=== PATIENT | male | born 1955 | race African-American/Black ===

== ENCOUNTER 2022-10-03 23:40 | Emergency (ER) | payer BC, MEDICAID ==
[~2022-10-03] VITALS: Ht 182.9 cm; Wt 77.0 kg
[2022-10-04 00:01] VITALS: O2SAT 95
[2022-10-04 01:09] LABS: BASOPHILS % 0.1 % (0.0-2.0); EOSINOPHILS % 0.6 % (0.0-5.0); HEMATOCRIT. 51.2 % (42.0-52.0); LYMPHOCYTES % 21.4 % (20.0-50.0); MEAN CORPUSCULAR HEMOGLOBIN 30.2 pg (28.0-32.0); MEAN CORPUSCULAR HGB CONC 33.2 g/dL (31.0-37.0); MEAN CORPUSCULAR VOLUME 91.1 fL (80.0-94.0); MEAN PLATELET VOLUME 9.6 fl (7.4-10.4); MONOCYTES % 7.3 % (2.0-8.0); NEUTROPHILS % 70.6 % (40.0-76.0); PLATELET 146 x1000/uL (130-400); RED BLOOD CELL COUNT 5.62 mill/uL (4.7-6.1); RED CELL DISTRIBUTION WIDTH 13.4 % (11.6-14.6); WHITE BLOOD COUNT 7.3 x1000/uL (4.5-11.0)
[2022-10-04 01:14] LABS: CHLORIDE 110 mEq/L (98-107); INDEX HEMOLYSI 2 (1-3); INDEX ICTERIC 1 (1-4); INDEX LIPEMIC 1 (1-3); POTASSIUM 4.6 mEq/L (3.5-5.1); SODIUM 139 mEq/L (136-145)
[2022-10-04 01:25] LABS: ALANINE AMINOTRANSFERASE 75 IU/L (13-61); ALBUMIN 3.7 g/dL (3.4-5.0); ASPARTATE AMINOTRANSFERASE 52 IU/L (15-37); BILIRUBIN TOTAL 0.5 mg/dL (0.1-1.0); CALCIUM 9.3 mg/dL (8.5-10.1); CARBON DIOXIDE 23 mEq/L (21-32); CREATININE 1.2 mg/dL (0.6-1.3); GLUCOSE 124 mg/dL (70-105); NT PRO B-TYPE NATRIURETIC PEP 143 pg/mL (5-125); PROTEIN TOTAL 7.9 g/dL (6.0-8.3); UREA NITROGEN BLOOD 17 mg/dL (7-21)
[2022-10-04 01:32] LABS: TROPONIN I HIGH SENSITIVITY < 4 ng/L (<78)
[2022-10-04 02:09] LABS: INR 1.1; PROTHROMBIN TIME 11.6 sec (9.6-11.0)
[2022-10-04 02:55] LABS: TROPONIN I HIGH SENSITIVITY < 4 ng/L (<78)
[2022-10-04] MEDS ORDERED: HYDRALAZINE 20MG/ML VIAL IV ONE (06:00)
[2022-10-04] MEDS ORDERED: ACETAMINOPHEN 325MG TABLET PO ONE (06:00)
[2022-10-04] MEDS ORDERED: ONDANSETRON HCL 4MG/2ML INJ IV ONE (06:30)
[2022-10-04 06:41] VITALS: BP 142/52; PULSE 72; RESP 18; TEMP 98.9
== END 2022-10-04 06:50 | disposition short-term general hospital (02) ==
LOC: ER 23:40 → CANBEDREQ 10-05 00:32
DX: R55 Syncope and collapse (principal); I10 Essential (primary) hypertension
CPT/HCPCS: 99285; 96374; 71045; 96375; 80053; 83880; 85025; 85610; 86850; 86900; 86901; 84484; 36415; 93005; J0360; J2405

== ENCOUNTER 2023-07-28 17:33 | Inpatient (IN) | payer MEDICAID, MEDICARE ==
[~2023-07-28] VITALS: Ht 170.2 cm; Wt 67.1 kg
[2023-07-28] MEDS ORDERED: CLONIDINE 0.2MG TABLET PO ONE (21:45)
[2023-07-28] MEDS: CLONIDINE 0.1MG TABLET PO NR (22:45)
[2023-07-28 22:58] LABS: BASOPHILS % 0.3 % (0.0-2.0); EOSINOPHILS % 3.1 % (0.0-5.0); HEMATOCRIT. 48.8 % (42.0-52.0); HEMOGLOBIN. 16.1 g/dL (14.0-18.0); LYMPHOCYTES % 32.2 % (20.0-50.0); MEAN CORPUSCULAR HGB CONC 33.1 g/dL (31.0-37.0); MEAN CORPUSCULAR VOLUME 93.7 fL (80.0-94.0); MEAN PLATELET VOLUME 9.6 fl (7.4-10.4); MONOCYTES % 11.6 % (2.0-8.0); NEUTROPHILS % 52.8 % (40.0-76.0); PLATELET 152 x1000/uL (130-400); RED BLOOD CELL COUNT 5.21 mill/uL (4.7-6.1); RED CELL DISTRIBUTION WIDTH 14.2 % (11.6-14.6); WHITE BLOOD COUNT 10.1 x1000/uL (4.5-11.0)
[2023-07-28 23:08] LABS: CHLORIDE 103 mEq/L (98-107); POTASSIUM 4.4 mEq/L (3.5-5.1); SODIUM 136 mEq/L (136-145)
[2023-07-28 23:09] LABS: CARBON DIOXIDE 25 mEq/L (21-32)
[2023-07-28 23:10] LABS: CALCIUM 9.9 mg/dL (8.7-10.4); INR 1.1; PARTIAL THROMBOPLASTIN TIME 29.2 sec (23.4-31.0); PROTHROMBIN TIME 11.8 sec (9.6-11.0)
[2023-07-28 23:14] LABS: CREATININE 1.5 mg/dL (0.6-1.3); GLUCOSE 97 mg/dL (70-105); UREA NITROGEN BLOOD 13 mg/dL (9-23)
[2023-07-28 23:15] LABS: TROPONIN I HIGH SENSITIVITY < 4 ng/L (3.0-53)
[2023-07-28] MEDS: ASPIRIN 325MG EC TABLET PO ONE (23:52)
[2023-07-29 06:38] VITALS: BP 129/51; PULSE 59; RESP 18; TEMP 97.7
[2023-07-29 07:43] VITALS: BP 129/51; PULSE 59; RESP 18; TEMP 97.7
[2023-07-29 08:00] VITALS: BP 133/70; PULSE 58; RESP 18; TEMP 98
[2023-07-29] MEDS ORDERED: ACETAMINOPHEN 325MG TABLET PO PRN (09:00)
[2023-07-29] MEDS ORDERED: ONDANSETRON HCL 4MG/2ML INJ IV PRN (09:00)
[2023-07-29] MEDS: ENOXAPARIN 30MG/0.3ML SYR SUBCUT SCH (09:50)
[2023-07-29] MEDS: ASPIRIN 81MG TABLET PO SCH (09:51)
[2023-07-29 12:00] VITALS: BP 141/75; PULSE 55; RESP 18; TEMP 99
[2023-07-29 16:00] VITALS: BP 115/50; PULSE 66; RESP 20; TEMP 98
[2023-07-29 20:00] VITALS: BP 122/53; PULSE 63; RESP 18; TEMP 97.3
[2023-07-29] MEDS: ATORVASTATIN CALCIUM 40MG TABLET PO SCH (20:24)
[2023-07-30] VITALS: BP 141/59; PULSE 57; RESP 16; TEMP 97.2
[2023-07-30 04:00] VITALS: BP 144/66; PULSE 63; RESP 18; TEMP 97.2
[2023-07-30 08:00] VITALS: BP 122/70; PULSE 67; RESP 18; TEMP 97.9
[2023-07-30] MEDS: CLOPIDOGREL 75MG TABLET PO SCH (08:32)
[2023-07-30 12:00] VITALS: BP 127/56; PULSE 59; RESP 18; TEMP 97
[2023-07-30 16:00] VITALS: BP 127/58; PULSE 65; RESP 18; TEMP 97
[2023-07-30 20:00] VITALS: BP 142/69; PULSE 62; RESP 18; TEMP 97.5
[2023-07-31] VITALS: BP 144/72; PULSE 60; RESP 20; TEMP 97.3
[2023-07-31 04:00] VITALS: BP 147/54; PULSE 59; RESP 20; TEMP 97.2
[2023-07-31 08:00] VITALS: BP 145/70; PULSE 58; RESP 18; TEMP 97.5
[2023-07-31 12:00] VITALS: BP 129/62; PULSE 59; RESP 18; TEMP 97.7
[2023-07-31] MEDS ORDERED: LIP40 PO (14:30)
[2023-07-31] MEDS ORDERED: ASPI-1160 PO (14:30)
[2023-07-31] MEDS ORDERED: CLOP-31 PO (14:30)
[2023-07-31 15:41] VITALS: BP 132/62; PULSE 66; TEMP 97.6; O2SAT 97
[2023-07-31 16:00] VITALS: BP 127/54; PULSE 65; RESP 18; TEMP 97.5
== END 2023-07-31 19:00 | disposition home or self-care (01) | DRG 64 ==
LOC: ER 17:33 → 5WST 07-29 03:30 → 8WST 07-29 09:26
PROVIDERS: ADMIT Internal Medicine Pulmonary Disease; ATTEND Internal Medicine Pulmonary Disease
DX: I63.511 Cerebral infarction due to unspecified occlusion or stenosis of right middle cerebral artery (principal); N17.0 Acute kidney failure with tubular necrosis; R27.0 Ataxia, unspecified; F17.210 Nicotine dependence, cigarettes, uncomplicated; F32.A Depression, unspecified
CPT/HCPCS: 36415; 70551; 71045; 80048; 80061; 82962; 84484; 85025; 93005; 93306; 93880; 95816; 97116; 97162; 97166; 99285; J1650

== ENCOUNTER 2023-08-12 22:52 | Inpatient (IN) | payer MEDICAID ==
[~2023-08-12] VITALS: Ht 175.3 cm; Wt 67.6 kg
[~2023-08-12 22:52] MED LIST: ASPI-1160 PO; CLOP-31 PO; LIP40 PO
[2023-08-12 22:55] VITALS: O2SAT 97
[2023-08-12 23:23] LABS: BASOPHILS % 0.4 % (0.0-2.0); EOSINOPHILS % 5.8 % (0.0-5.0); HEMATOCRIT. 37.9 % (42.0-52.0); HEMOGLOBIN. 12.9 g/dL (14.0-18.0); LYMPHOCYTES % 31.1 % (20.0-50.0); MEAN CORPUSCULAR HEMOGLOBIN 31.2 pg (28.0-32.0); MEAN CORPUSCULAR VOLUME 91.6 fL (80.0-94.0); MEAN PLATELET VOLUME 9.8 fl (7.4-10.4); MONOCYTES % 8.2 % (2.0-8.0); NEUTROPHILS % 54.5 % (40.0-76.0); PLATELET 179 x1000/uL (130-400); RED BLOOD CELL COUNT 4.14 mill/uL (4.7-6.1); WHITE BLOOD COUNT 9.5 x1000/uL (4.5-11.0)
[2023-08-12 23:30] LABS: BG BASE EXCESS -1.1 mmol/L (-2.0-2.0); BG CARBOXYHEMOGLOBIN 0.3 % (0.5-1.5); BG DEOXYHEMOGLOBIN 2.5 % (0.0-5.0); BG FRACTION INSPIRED OXYGEN 21; BG HCO3 ACT 23.4 mmol/L (22.0-26.0); BG METHEMOGLOBIN 0.2 % (0.0-1.5); BG OXYGEN SATURATION 97.5 % (92.0-98.5); BG PCO2 38.5 mmHg (35.0-45.0); BG PH 7.402 (7.350-7.450); BG PO2 107.6 mmHg (75.0-100.0); BG SAMPLE SITE RIGHT RADIAL; BG VENT MODE ROOM AIR
[2023-08-12 23:35] LABS: CHLORIDE 108 mEq/L (98-107); POTASSIUM 3.4 mEq/L (3.5-5.1); SODIUM 143 mEq/L (136-145)
[2023-08-12 23:36] LABS: CALCIUM 9.4 mg/dL (8.7-10.4); CARBON DIOXIDE 26 mEq/L (21-32)
[2023-08-12 23:37] LABS: LACTIC ACID 2.1 mmol/L (0.4-2.0)
[2023-08-12 23:40] LABS: AMMONIA 49 uMol/L (<32)
[2023-08-12 23:41] LABS: CREATININE 1.7 mg/dL (0.6-1.3); GLUCOSE 177 mg/dL (70-105); UREA NITROGEN BLOOD 25 mg/dL (9-23)
[2023-08-12 23:43] LABS: ACETAMINOPHEN 8 ug/mL (10-30); ALANINE AMINOTRANSFERASE 78 IU/L (10-49); ASPARTATE AMINOTRANSFERASE 72 IU/L (<34); BILIRUBIN DIRECT 0.2 mg/dL (<=3.0); BILIRUBIN TOTAL 0.3 mg/dL (0.1-1.0); CREATINE KINASE 92 IU/L (46-171); ETHANOL BLOOD < 10 mg/dL (<10); PROTEIN TOTAL 6.6 g/dL (6.0-8.3); TROPONIN I HIGH SENSITIVITY < 4 ng/L (3.0-53)
[2023-08-12] MEDS: SODIUM CHLORIDE 0.9% 500 ML IV ONE (23:45)
[2023-08-13] VITALS (60 sets, daily range): BP systolic 83–121; BP diastolic 31–95; PULSE 58–94; RESP 12–24; TEMP 94–98
[2023-08-13] MEDS: SODIUM CHLORIDE 0.9% 1,000 ML IV ONE (01:04)
[2023-08-13] MEDS: POTASSIUM CHLORIDE 20MEQ/PACKET PO NR (02:55)
[2023-08-13] MEDS: MIDODRINE HCL 5MG TABLET PO ONE (03:45)
[2023-08-13] MEDS ORDERED: NOREPINEPHRINE 8MG/250ML PMX 250 ML IV PRN (07:45)
[2023-08-13] MEDS ORDERED: NOREPINEPHRINE 8MG/250ML PMX 250 ML IV ONE (08:00)
[2023-08-13] MEDS: NOREPINEPHRINE 8MG/250ML PMX 250 ML IV PRN (08:15)
[2023-08-13] MEDS: SODIUM CHLORIDE 0.45% 1,000 ML IV STA (08:47)
[2023-08-13] MEDS ORDERED: CLONIDINE 0.1MG TABLET PO PRN (09:00)
[2023-08-13] MEDS ORDERED: IPRATROPIUM/ALBUTEROL 0.5-3(2.5)MG/3ML NEB HHN PRN (09:00)
[2023-08-13] MEDS ORDERED: DOCUSATE SODIUM 100MG CAPSULE PO PRN (09:00)
[2023-08-13] MEDS ORDERED: ACETAMINOPHEN 325MG TABLET PO PRN ×2 (09:00)
[2023-08-13] MEDS ORDERED: NA PHOS,M-B/NA PHOS,DI-BA ENEMA 118ML PR PRN (09:00)
[2023-08-13] MEDS ORDERED: MAGNESIUM/ALUMINUM HYDROXIDE/SIMETHICONE 30ML UDC PO PRN (09:00)
[2023-08-13] MEDS ORDERED: GUAIFENESIN 200MG/10ML SUGAR FREE UDC PO PRN (09:00)
[2023-08-13] MEDS: DOPAMINE 400MG/250ML PREMIX 250 ML IV SCH (09:54)
[2023-08-13] MEDS: SODIUM CHLORIDE 0.45% 1,000 ML IV SCH (09:54)
[2023-08-13 09:59] LABS: BASOPHILS % 0.4 % (0.0-2.0); EOSINOPHILS % 0.5 % (0.0-5.0); HEMATOCRIT. 38.2 % (42.0-52.0); HEMOGLOBIN. 12.7 g/dL (14.0-18.0); LYMPHOCYTES % 12.4 % (20.0-50.0); MEAN CORPUSCULAR HEMOGLOBIN 30.4 pg (28.0-32.0); MEAN CORPUSCULAR HGB CONC 33.3 g/dL (31.0-37.0); MEAN CORPUSCULAR VOLUME 91.4 fL (80.0-94.0); NEUTROPHILS % 79.7 % (40.0-76.0); PLATELET 196 x1000/uL (130-400); RED BLOOD CELL COUNT 4.17 mill/uL (4.7-6.1); WHITE BLOOD COUNT 15.3 x1000/uL (4.5-11.0)
[2023-08-13 10:15] LABS: CHLORIDE 108 mEq/L (98-107); POTASSIUM 3.9 mEq/L (3.5-5.1); SODIUM 140 mEq/L (136-145)
[2023-08-13 10:16] LABS: CARBON DIOXIDE 22 mEq/L (21-32)
[2023-08-13 10:17] LABS: CALCIUM 9.2 mg/dL (8.7-10.4)
[2023-08-13 10:21] LABS: CREATININE 2.2 mg/dL (0.6-1.3); GLUCOSE 186 mg/dL (70-105)
[2023-08-13 10:22] LABS: UREA NITROGEN BLOOD 26 mg/dL (9-23)
[2023-08-13 10:26] LABS: T4 FREE 1.01 ng/dL (0.89-1.76); THYROID STIMULATING HORMONE 0.73 uIU/mL (0.55-4.78)
[2023-08-13] MEDS: ONDANSETRON HCL 4MG/2ML INJ IV PRN (11:12)
[2023-08-13] MEDS: THIAMINE HCL 100MG TABLET PO SCH (12:18)
[2023-08-13] MEDS ORDERED: DOPAMINE 400MG/250ML PREMIX 250 ML IV PRN (12:45)
[2023-08-13] MEDS: LIDOCAINE HCL 1% 10 MG/ML 10ML VIAL ONE (13:11)
[2023-08-13] MEDS: MAGNESIUM OXIDE 400MG TABLET PO SCH (14:22)
[2023-08-13] MEDS: ASPIRIN 81MG EC TABLET PO SCH (14:22)
[2023-08-13] MEDS: CLOPIDOGREL 75MG TABLET PO SCH (14:22)
[2023-08-13] MEDS: NOREPINEPHRINE 32 MG in DEXT 5% WATER 218 ML IV PRN (14:23)
[2023-08-13] MEDS: SODIUM CHLORIDE 0.9% 1,000 ML IV STA (14:31)
[2023-08-13 17:50] LABS: CREATINE KINASE 83 IU/L (46-171)
[2023-08-13 18:04] LABS: TROPONIN I HIGH SENSITIVITY < 4 ng/L (3.0-53)
[2023-08-13] MEDS: ATORVASTATIN CALCIUM 40MG TABLET PO SCH (20:44)
[2023-08-13] MEDS ORDERED: DEXTROSE 50% WATER 50ML SYRINGE IV PRN (21:00)
[2023-08-13] MEDS: BLOOD SUGAR DIAGNOSTIC STRIP TEST SCH (21:00)
[2023-08-13] MEDS: DEXT 5%/0.45% NACL 1000ML 1,000 ML IV SCH (22:17)
[2023-08-13] MEDS: INSULIN LISPRO 100 UNITS/ML SUBCUT SCH (22:28)
[2023-08-13 23:01] LABS: TROPONIN I HIGH SENSITIVITY < 4 ng/L (3.0-53)
[2023-08-13 23:02] LABS: CREATINE KINASE 82 IU/L (46-171)
[2023-08-14] VITALS (100 sets, daily range): BP systolic 63–136; BP diastolic 32–79; PULSE 70–112; RESP 6–32; TEMP 96.8–98.2
[2023-08-14 04:09] LABS: BASOPHILS % 0.2 % (0.0-2.0); EOSINOPHILS % 0.6 % (0.0-5.0); HEMATOCRIT. 33.5 % (42.0-52.0); HEMOGLOBIN. 11.4 g/dL (14.0-18.0); LYMPHOCYTES % 21.9 % (20.0-50.0); MEAN CORPUSCULAR HEMOGLOBIN 30.6 pg (28.0-32.0); MEAN CORPUSCULAR HGB CONC 34.1 g/dL (31.0-37.0); MEAN CORPUSCULAR VOLUME 89.6 fL (80.0-94.0); MEAN PLATELET VOLUME 9.2 fl (7.4-10.4); MONOCYTES % 11.3 % (2.0-8.0); PLATELET 177 x1000/uL (130-400); RED BLOOD CELL COUNT 3.73 mill/uL (4.7-6.1); RED CELL DISTRIBUTION WIDTH 13.3 % (11.6-14.6); WHITE BLOOD COUNT 12.9 x1000/uL (4.5-11.0)
[2023-08-14 04:56] LABS: CHLORIDE 106 mEq/L (98-107); POTASSIUM 2.9 mEq/L (3.5-5.1); SODIUM 138 mEq/L (136-145)
[2023-08-14 04:57] LABS: CALCIUM 8.3 mg/dL (8.7-10.4); CARBON DIOXIDE 22 mEq/L (21-32)
[2023-08-14 05:02] LABS: CREATININE 2.1 mg/dL (0.6-1.3); GLUCOSE 195 mg/dL (70-105); TRIGLYCERIDE 75 mg/dL (0-150); UREA NITROGEN BLOOD 29 mg/dL (9-23)
[2023-08-14 05:03] LABS: LDL CHOLESTEROL 29 mg/dL (5-100)
[2023-08-14 05:04] LABS: CHOLESTEROL 91 mg/dL (<200); HDL CHOLESTEROL 37 mg/dL (>55); THYROID STIMULATING HORMONE 0.28 uIU/mL (0.55-4.78)
[2023-08-14 05:11] LABS: TROPONIN I HIGH SENSITIVITY < 4 ng/L (3.0-53)
[2023-08-14] MEDS: PANTOPRAZOLE 40MG DR TABLET PO SCH (05:56)
[2023-08-14] MEDS: POTASSIUM CHLORIDE 20MEQ TABLET SR PO NR (08:34)
[2023-08-14] MEDS: KCL 20MEQ/100ML PREMIX 100 ML IV NR (08:34)
[2023-08-14] MEDS: DOPAMINE 400MG/250ML PREMIX 250 ML IV SCH (10:06)
[2023-08-14] MEDS: MIDODRINE HCL 5MG TABLET PO SCH (10:06)
[2023-08-14] MEDS: ALBUMIN HUMAN 25GM/500ML (5%) IV NR (11:16)
[2023-08-14] MEDS: NOREPINEPHRINE 32 MG in DEXT 5% WATER 218 ML IV PRN (13:00)
[2023-08-14] MEDS: SODIUM CHLORIDE 0.9% 1,000 ML IV SCH (22:21)
[2023-08-15] VITALS (86 sets, daily range): BP systolic 88–142; BP diastolic 41–113; PULSE 71–104; RESP 8–36; TEMP 97.3–98.4
[2023-08-15 05:26] LABS: BASOPHILS % 0.4 % (0.0-2.0); EOSINOPHILS % 2.1 % (0.0-5.0); HEMATOCRIT. 33.4 % (42.0-52.0); HEMOGLOBIN. 11.6 g/dL (14.0-18.0); LYMPHOCYTES % 22.3 % (20.0-50.0); MEAN CORPUSCULAR HGB CONC 34.6 g/dL (31.0-37.0); MEAN CORPUSCULAR VOLUME 89.6 fL (80.0-94.0); MEAN PLATELET VOLUME 10.1 fl (7.4-10.4); MONOCYTES % 11.8 % (2.0-8.0); NEUTROPHILS % 63.4 % (40.0-76.0); PLATELET 153 x1000/uL (130-400); RED BLOOD CELL COUNT 3.73 mill/uL (4.7-6.1); RED CELL DISTRIBUTION WIDTH 13.2 % (11.6-14.6); WHITE BLOOD COUNT 10.4 x1000/uL (4.5-11.0)
[2023-08-15 05:28] LABS: CARBON DIOXIDE 21 mEq/L (21-32); CHLORIDE 114 mEq/L (98-107); POTASSIUM 3.6 mEq/L (3.5-5.1); SODIUM 142 mEq/L (136-145)
[2023-08-15 05:29] LABS: CALCIUM 9.2 mg/dL (8.7-10.4)
[2023-08-15 05:34] LABS: GLUCOSE 89 mg/dL (70-105); UREA NITROGEN BLOOD 20 mg/dL (9-23)
[2023-08-15 05:36] LABS: PHOSPHORUS 1.4 mg/dL (2.5-4.9)
[2023-08-15 06:00] LABS: CREATININE 1.4 mg/dL (0.6-1.3)
[2023-08-15] MEDS: IOHEXOL-350 100 ML BOTTLE ONE (06:39)
[2023-08-15] MEDS: POTASSIUM PHOSPHATE 20 MMOL in DEXT 5% WATER 243.3333 ML IV SCH (10:33)
[2023-08-15] MEDS: MAGNESIUM 2 G PREMIX 50 ML IV SCH (10:33)
[2023-08-16] VITALS (54 sets, daily range): BP systolic 99–136; BP diastolic 50–91; PULSE 72–104; RESP 7–31; TEMP 97.5–98.1
[2023-08-16 05:17] LABS: BASOPHILS % 0.5 % (0.0-2.0); EOSINOPHILS % 5.2 % (0.0-5.0); HEMATOCRIT. 33.4 % (42.0-52.0); HEMOGLOBIN. 11.7 g/dL (14.0-18.0); LYMPHOCYTES % 25.7 % (20.0-50.0); MEAN CORPUSCULAR HEMOGLOBIN 31.3 pg (28.0-32.0); MEAN CORPUSCULAR VOLUME 89.6 fL (80.0-94.0); MEAN PLATELET VOLUME 9.8 fl (7.4-10.4); MONOCYTES % 10.9 % (2.0-8.0); NEUTROPHILS % 57.7 % (40.0-76.0); PLATELET 154 x1000/uL (130-400); RED BLOOD CELL COUNT 3.73 mill/uL (4.7-6.1); RED CELL DISTRIBUTION WIDTH 13.1 % (11.6-14.6)
[2023-08-16 05:21] LABS: CHLORIDE 113 mEq/L (98-107); POTASSIUM 3.8 mEq/L (3.5-5.1); SODIUM 142 mEq/L (136-145)
[2023-08-16 05:22] LABS: CALCIUM 8.6 mg/dL (8.7-10.4); CARBON DIOXIDE 22 mEq/L (21-32)
[2023-08-16 05:27] LABS: CREATININE 1.3 mg/dL (0.6-1.3); GLUCOSE 100 mg/dL (70-105); UREA NITROGEN BLOOD 15 mg/dL (9-23)
[2023-08-16 05:29] LABS: PHOSPHORUS 1.8 mg/dL (2.5-4.9)
[2023-08-16] MEDS: MULTIVITAMINS,THER W-MINERALS TABLET PO SCH (08:33)
[2023-08-16] MEDS: POTASSIUM PHOSPHATE 20 MMOL in DEXT 5% WATER 243.3333 ML IV SCH (11:54)
[2023-08-16] MEDS: MIDODRINE HCL 5MG TABLET PO SCH (11:55)
[2023-08-16 15:46] LABS: BG CARBOXYHEMOGLOBIN 0.4 % (0.5-1.5); BG DEOXYHEMOGLOBIN 4.7 % (0.0-5.0); BG FRACTION INSPIRED OXYGEN 21; BG METHEMOGLOBIN 0.3 % (0.0-1.5); BG OXYGEN SATURATION 95.3 % (92.0-98.5); BG OXYHEMOGLOBIN 94.6 % (94.0-97.0); BG PCO2 30.9 mmHg (35.0-45.0); BG PH 7.451 (7.350-7.450); BG PO2 75.5 mmHg (75.0-100.0); BG SAMPLE SITE RIGHT RADIAL; BG VENT MODE ROOM AIR
[2023-08-17 00:48] VITALS: BP 128/68; PULSE 91; RESP 20; TEMP 98.4
[2023-08-17 04:51] VITALS: BP 130/69; PULSE 88; RESP 18; TEMP 98.6
[2023-08-17 08:00] VITALS: BP 129/61; PULSE 81; RESP 15; TEMP 97.9
[2023-08-17 12:00] VITALS: BP 136/49; PULSE 71; RESP 15; TEMP 99.9
[2023-08-17 12:21] LABS: BASOPHILS % 0.5 % (0.0-2.0); EOSINOPHILS % 5.1 % (0.0-5.0); HEMATOCRIT. 37.5 % (42.0-52.0); HEMOGLOBIN. 12.7 g/dL (14.0-18.0); LYMPHOCYTES % 16.1 % (20.0-50.0); MEAN CORPUSCULAR HEMOGLOBIN 30.3 pg (28.0-32.0); MEAN CORPUSCULAR HGB CONC 33.9 g/dL (31.0-37.0); MEAN CORPUSCULAR VOLUME 89.3 fL (80.0-94.0); MEAN PLATELET VOLUME 9.4 fl (7.4-10.4); MONOCYTES % 9.2 % (2.0-8.0); NEUTROPHILS % 69.1 % (40.0-76.0); PLATELET 183 x1000/uL (130-400); WHITE BLOOD COUNT 8.3 x1000/uL (4.5-11.0)
[2023-08-17 12:30] LABS: CHLORIDE 109 mEq/L (98-107); POTASSIUM 4.2 mEq/L (3.5-5.1); SODIUM 141 mEq/L (136-145)
[2023-08-17 12:31] LABS: CALCIUM 9.9 mg/dL (8.7-10.4); CARBON DIOXIDE 23 mEq/L (21-32)
[2023-08-17 12:36] LABS: CREATININE 1.2 mg/dL (0.6-1.3); GLUCOSE 116 mg/dL (70-105); UREA NITROGEN BLOOD 16 mg/dL (9-23)
[2023-08-17 12:37] LABS: AMMONIA 34 uMol/L (<32)
[2023-08-17 12:38] LABS: PHOSPHORUS 2.7 mg/dL (2.5-4.9)
[2023-08-17 16:00] VITALS: BP 101/46; PULSE 75; RESP 15; TEMP 97.7
[2023-08-17 20:00] VITALS: BP 98/42; PULSE 71; RESP 17; TEMP 97.8
[2023-08-18] VITALS: BP 109/60; PULSE 78; RESP 17; TEMP 97.7
[2023-08-18 04:00] VITALS: BP 118/65; PULSE 71; RESP 17; TEMP 97.7
[2023-08-18 06:13] LABS: BASOPHILS % 0.4 % (0.0-2.0); EOSINOPHILS % 6.7 % (0.0-5.0); HEMATOCRIT. 37.3 % (42.0-52.0); LYMPHOCYTES % 29.8 % (20.0-50.0); MEAN CORPUSCULAR HGB CONC 34.9 g/dL (31.0-37.0); MEAN CORPUSCULAR VOLUME 88.9 fL (80.0-94.0); MEAN PLATELET VOLUME 9.5 fl (7.4-10.4); MONOCYTES % 10.4 % (2.0-8.0); NEUTROPHILS % 52.7 % (40.0-76.0); PLATELET 179 x1000/uL (130-400); RED CELL DISTRIBUTION WIDTH 13.3 % (11.6-14.6); WHITE BLOOD COUNT 8.4 x1000/uL (4.5-11.0)
[2023-08-18 06:19] LABS: CARBON DIOXIDE 25 mEq/L (21-32); CHLORIDE 106 mEq/L (98-107); POTASSIUM 3.5 mEq/L (3.5-5.1); SODIUM 140 mEq/L (136-145)
[2023-08-18 06:20] LABS: CALCIUM 10.3 mg/dL (8.7-10.4)
[2023-08-18 06:25] LABS: CREATININE 1.1 mg/dL (0.6-1.3); GLUCOSE 97 mg/dL (70-105); UREA NITROGEN BLOOD 17 mg/dL (9-23)
[2023-08-18] MEDS: FAMOTIDINE 20MG TABLET PO SCH (08:24)
[2023-08-18 08:29] VITALS: BP 94/64; PULSE 68; RESP 18; TEMP 98.2
[2023-08-18 12:00] VITALS: BP 99/47; PULSE 68; RESP 18; TEMP 97.6
[2023-08-18 16:06] VITALS: BP 112/46; PULSE 68; RESP 18; TEMP 97.8
[2023-08-18 20:00] VITALS: BP 114/44; PULSE 74; RESP 17; TEMP 97.7
[2023-08-19] VITALS: BP 106/44; PULSE 69; RESP 18; TEMP 97.8
[2023-08-19 04:00] VITALS: BP 111/44; PULSE 68; RESP 17; TEMP 97.9
[2023-08-19 08:00] VITALS: BP 112/49; PULSE 72; RESP 20; TEMP 97
[2023-08-19 16:00] VITALS: BP 112/46; PULSE 68; RESP 18; TEMP 97.8
[2023-08-19] MEDS: MIDODRINE HCL 5MG TABLET PO SCH (17:31)
== END 2023-08-19 18:21 | disposition left against medical advice (07) | DRG 64 ==
LOC: ER 22:52 → EDBD 08-13 02:42 → MICUSO 08-13 02:42 → EDBEDREQSVC 08-13 07:41 → MICUSO 08-13 09:35 → 8WST 08-16 17:50
PROVIDERS: ADMIT Hospitalist; ATTEND Hospitalist
PROC: 02HV33Z Insertion of Infusion Device into Superior Vena Cava, Percutaneous Approach (ICD-10-PCS; principal; 2023-08-13)
PROC: B548ZZA Ultrasonography of Superior Vena Cava, Guidance (ICD-10-PCS; 2023-08-13)
DX: I63.511 Cerebral infarction due to unspecified occlusion or stenosis of right middle cerebral artery (principal); G82.50 Quadriplegia, unspecified; G93.41 Metabolic encephalopathy; N17.0 Acute kidney failure with tubular necrosis; E86.0 Dehydration; R47.01 Aphasia; R29.702 NIHSS score 2; D72.829 Elevated white blood cell count, unspecified; E78.5 Hyperlipidemia, unspecified; I95.9 Hypotension, unspecified; F32.9 Major depressive disorder, single episode, unspecified; F17.210 Nicotine dependence, cigarettes, uncomplicated; H54.7 Unspecified visual loss; I10 Essential (primary) hypertension; J44.9 Chronic obstructive pulmonary disease, unspecified; W19.XXXA Unspecified fall, initial encounter; Y92.009 Unspecified place in unspecified non-institutional (private) residence as the place of occurrence of the external cause; Z79.02 Long term (current) use of antithrombotics/antiplatelets; Z79.82 Long term (current) use of aspirin; Z79.899 Other long term (current) drug therapy; Z82.49 Family history of ischemic heart disease and other diseases of the circulatory system; Y93.89 Activity, other specified; Y99.8 Other external cause status; R47.1 Dysarthria and anarthria; Z60.2 Problems related to living alone
CPT/HCPCS: 36415; 36573; 36600; 70496; 70498; 70551; 71045; 80048; 80061; 80076; 80307; 80320; 80329; 82140; 82375; 82550; 82805; 82962; 83036; 83605; 83735; 83880; 84100; 84439; 84443; 84484; 85025; 86850; 86900; 92523; 92610; 93005; 93306; 93970; 97162; 97166; 97530; 97535; 99291; A6261; C1725; J1265; J1815; J2405; J3475; J3480; J3490; J7030; J7060; P9041; Q9967; G0480

== ENCOUNTER 2023-12-16 06:35 | Emergency (ER) | payer MEDICAID, MEDICARE, OTHER ==
[~2023-12-16] VITALS: Ht 172.7 cm; Wt 76.0 kg
[2023-12-16 06:40] VITALS: O2SAT 98
[2023-12-16] MEDS ORDERED: MAGNESIUM/ALUMINUM HYDROXIDE/SIMETHICONE 30ML UDC PO STA (06:46)
[2023-12-16 07:57] LABS: CHLORIDE 104 mEq/L (98-107); HEMATOCRIT. 41.1 % (42.0-52.0); HEMOGLOBIN. 13.9 g/dL (14.0-18.0); MEAN CORPUSCULAR HEMOGLOBIN 29.9 pg (28.0-32.0); MEAN CORPUSCULAR HGB CONC 33.8 g/dL (31.0-37.0); MEAN CORPUSCULAR VOLUME 88.5 fL (80.0-94.0); MEAN PLATELET VOLUME 9.8 fl (7.4-10.4); PLATELET 157 x1000/uL (130-400); POTASSIUM 3.5 mEq/L (3.5-5.1); RED BLOOD CELL COUNT 4.65 mill/uL (4.7-6.1); RED CELL DISTRIBUTION WIDTH 14.2 % (11.6-14.6); WHITE BLOOD COUNT 12.7 x1000/uL (4.5-11.0)
[2023-12-16 07:58] LABS: SODIUM 138 mEq/L (136-145)
[2023-12-16 07:59] LABS: CALCIUM 9.5 mg/dL (8.7-10.4); CARBON DIOXIDE 24 mEq/L (21-32)
[2023-12-16 08:04] LABS: GLUCOSE 209 mg/dL (70-105); UREA NITROGEN BLOOD 22 mg/dL (9-23)
[2023-12-16 08:06] LABS: ALANINE AMINOTRANSFERASE 47 IU/L (10-49); ALBUMIN 4.1 g/dL (3.2-4.8); ASPARTATE AMINOTRANSFERASE 39 IU/L (<34); BILIRUBIN DIRECT 0.3 mg/dL (<=3.0); BILIRUBIN TOTAL 0.8 mg/dL (0.1-1.0)
[2023-12-16 08:07] LABS: PROTEIN TOTAL 7.3 g/dL (6.0-8.3)
[2023-12-16 08:17] LABS: DIFFERENTIAL COMMENT 1
[2023-12-16 08:31] LABS: CREATININE 2.3 mg/dL (0.6-1.3)
[2023-12-16 08:35] VITALS: TEMP 36.55848
[2023-12-16] MEDS: SODIUM CHLORIDE 0.9% 1,000 ML IV ONE (08:42)
[2023-12-16] MEDS: MAGNESIUM/ALUMINUM HYDROXIDE/SIMETHICONE 30ML UDC PO NR (09:22)
[2023-12-16 10:01] LABS: PLATELET ESTIMATE NORMAL
[2023-12-16] MEDS ORDERED: IMOD MT (10:06)
[2023-12-16 10:32] VITALS: BP 131/61; PULSE 77; RESP 14; O2SAT 99
== END 2023-12-16 11:14 | disposition home or self-care (01) ==
LOC: ER 06:35
DX: R10.33 Periumbilical pain (principal); R19.7 Diarrhea, unspecified; I10 Essential (primary) hypertension; Z86.73 Personal history of transient ischemic attack (TIA), and cerebral infarction without residual deficits; Z79.899 Other long term (current) drug therapy; Z79.02 Long term (current) use of antithrombotics/antiplatelets; Z79.82 Long term (current) use of aspirin
CPT/HCPCS: 99284; 74176; 96360; 80076; 80048; 83690; 85025; 36415; 93005; J7030

== ENCOUNTER 2023-12-16 16:14 | Emergency (ER) | payer MEDICAID, MEDICARE, OTHER ==
[~2023-12-16] VITALS: Ht 172.7 cm; Wt 68.0 kg
[~2023-12-16 16:14] MED LIST changes: +IMOD MT
[2023-12-16 16:16] VITALS: O2SAT 98
[2023-12-16] MEDS: METOCLOPRAMIDE HCL 10MG/2ML VIAL IV STA (17:55)
[2023-12-16 18:08] LABS: TROPONIN I HIGH SENSITIVITY 7 ng/L (3.0-53)
[2023-12-16 18:24] LABS: ETHANOL BLOOD < 10 mg/dL (<10)
[2023-12-16 18:36] LABS: CLARITY URINE CLEAR (CLEAR); COLOR URINE YELLOW (YELLOW); GLUCOSE URINE NEGATIVE (NEGATIVE); KETONES URINE TRACE (NEGATIVE); LEUKOCYTE ESTERASE URINE NEGATIVE (NEGATIVE); NITRITE URINE NEGATIVE (NEGATIVE); OCCULT BLOOD URINE NEGATIVE (NEGATIVE); PROTEIN URINE 1+ (NEGATIVE); SPECIFIC GRAVITY URINE 1.036 (1.005-1.030)
[2023-12-16 19:06] LABS: *AMPHETAMINES SCREEN URINE NEGATIVE (NEGATIVE); *BARBITURATES SCREEN URINE NEGATIVE (NEGATIVE); *BENZODIAZEPINES SCREEN URINE NEGATIVE (NEGATIVE); *COCAINE SCREEN URINE PRESUMPTIVE POSITIVE (NEGATIVE); CANNABINOID URINE SCREEN NEGATIVE (NEGATIVE); ECSTASY MDMA SCREEN URINE NEGATIVE (NEGATIVE); METHADONE URINE SCREEN NEGATIVE (NEGATIVE); OPIATES URINE SCREEN NEGATIVE (NEGATIVE); PHENCYCLIDINE URINE SCREEN NEGATIVE (NEGATIVE)
[2023-12-16 19:21] VITALS: BP 128/64; PULSE 87; RESP 16; TEMP 36.66960; O2SAT 100
[2023-12-16 19:28] LABS: BACTERIA URINE TRACE; RBC URINE NONE SEEN /hpf (0-2); SQUAMOUS EPITHELIAL CELL URINE FEW /lpf (RARE/1+); WBC URINE 0-2 /hpf (0-2)
[2023-12-16] MEDS ORDERED: IOHEXOL-300 100 ML BOTTLE ONE (23:39)
== END 2023-12-16 19:48 | disposition short-term general hospital (02) ==
LOC: ER 16:14 → CANBEDREQ 18:51 → ER 19:48
DX: R55 Syncope and collapse (principal); I10 Essential (primary) hypertension; Z86.73 Personal history of transient ischemic attack (TIA), and cerebral infarction without residual deficits; Z79.899 Other long term (current) drug therapy
CPT/HCPCS: 80305; 81003; 80320; 84484; 36415; 71045; 70460; 72125; 93005; 96374; 99285; Q9967; J2765; G0480

== ENCOUNTER 2025-01-18 15:28 | Emergency (ER) | payer OTHER, MEDICAID ==
[~2025-01-18] VITALS: Ht 177.8 cm; Wt 71.0 kg
[2025-01-18 15:29] VITALS: O2SAT 100
[2025-01-18] MEDS: SODIUM CHLORIDE 0.9% 1,000 ML IV ONE (16:13)
[2025-01-18 16:40] LABS: BASOPHILS % 0.5 % (0.0-2.0); EOSINOPHILS % 2.6 % (0.0-5.0); HEMATOCRIT. 44.8 % (42.0-52.0); HEMOGLOBIN. 14.9 g/dL (14.0-18.0); LYMPHOCYTES % 24.7 % (20.0-50.0); MEAN PLATELET VOLUME 9.3 fl (7.4-10.4); MONOCYTES % 10.7 % (2.0-8.0); NEUTROPHILS % 61.5 % (40.0-76.0); PLATELET 135 x1000/uL (130-400); RED BLOOD CELL COUNT 5.06 mill/uL (4.7-6.1); RED CELL DISTRIBUTION WIDTH 13.0 % (11.6-14.6)
[2025-01-18 16:52] LABS: INR 1.1
[2025-01-18 17:00] LABS: CREATININE 1.3 mg/dL (0.6-1.3); UREA NITROGEN BLOOD 16 mg/dL (9-23)
[2025-01-18 17:01] LABS: TROPONIN I HIGH SENSITIVITY < 4 ng/L (3.0-53)
[2025-01-18 17:02] LABS: ASPARTATE AMINOTRANSFERASE 63 IU/L (<34); BILIRUBIN DIRECT 0.3 mg/dL (<=3.0); BILIRUBIN TOTAL 0.6 mg/dL (0.1-1.0)
[2025-01-18 17:03] LABS: PROTEIN TOTAL 7.5 g/dL (6.0-8.3)
[2025-01-18 19:49] LABS: TROPONIN I HIGH SENSITIVITY < 4 ng/L (3.0-53)
[2025-01-18 20:41] LABS: CREATININE 1.1 mg/dL (0.6-1.3); UREA NITROGEN BLOOD 11 mg/dL (9-23)
[2025-01-18] MEDS: CLONIDINE 0.1MG TABLET PO ONE (21:48)
[2025-01-18 21:52] VITALS: TEMP 36.7
[2025-01-18 23:40] VITALS: BP 144/63; PULSE 66; RESP 14; O2SAT 99
== END 2025-01-18 23:40 | disposition home or self-care (01) ==
LOC: ER 15:28 → CANBEDREQ 23:20 → ER 23:40
DX: R55 Syncope and collapse (principal); R53.1 Weakness; E78.00 Pure hypercholesterolemia, unspecified; I10 Essential (primary) hypertension; R06.02 Shortness of breath; Z79.02 Long term (current) use of antithrombotics/antiplatelets; Z79.82 Long term (current) use of aspirin; Z79.899 Other long term (current) drug therapy; Z86.73 Personal history of transient ischemic attack (TIA), and cerebral infarction without residual deficits
CPT/HCPCS: 80076; 80048; 80320; 83880; 83735; 85025; 85610; 84484; 36415; 71045; 93005; 96360; 96361; 99285; J7030; G0480